=== PATIENT | female | born 1965 | race American Indian/Alaskan Native ===

== ENCOUNTER 2016-09-21 12:55 | Emergency (ER) | payer SELFPAY ==
[2016-09-21 13:17] VITALS: TEMP 98.2
--- NOTE | 2016-09-21 14:16 | C.PDOC ---
History Of Present Illness A 51 year old female patient presents to the ED c/o chest pain after waking up this morning. 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 After going to bed she notes waking up in the middle of the night and felt like "a big bubble" in her mid chest. She notes feeling nauseous, so she tried drinking water and made herself vomit with no relief. Patient notes pain as being positional were it worsens when laying down and feels better standing. Patient denies any trauma, fever, chills, SOB, cough, or any other complaints. Patient reports no other medical problems or heart diseases. Time Seen by Provider: 09/21/16 13:48 Chief Complaint (Nursing): Chest Pain History Per: Patient History/Exam Limitations: no limitations Onset/Duration Of Symptoms: Hrs Current Symptoms Are (Timing): Still Present Severity: Mild Quality: Other (Mild discomfort) Associated Symptoms: Nausea Past Medical History Reviewed: Historical Data, Nursing Documentation, Vital Signs Vital Signs: Last Vital Signs Temp 98.2 F 09/21/16 13:13 Pulse 62 09/21/16 18:43 Resp 17 09/21/16 18:43 BP 122/66 09/21/16 18:43 Pulse Ox 99 09/21/16 18:43 - Medical History PMH: Bipolar Disorder Family History: States: Diabetes, Hypertension - Social History Hx Tobacco Use: Yes (Social Smoker) Hx Alcohol Use: Yes Hx Substance Use: Yes - Immunization History Hx Tetanus Toxoid Vaccination: No Hx Influenza Vaccination: No Hx Pneumococcal Vaccination: No Review Of Systems Except As Marked, All Systems Reviewed And Found Negative. Constitutional: Negative for: Fever, Chills, Other (Trauma) Cardiovascular: Positive for: Chest Pain (Mid chest) Respiratory: Negative for: Cough, Shortness of Breath Gastrointestinal: Positive for: Nausea Physical Exam - Physical Exam Appears: Non-toxic, Other (Uncomfortable) Skin: Warm, Dry Head: Atraumatic Eye(s): bilateral: Normal Inspection Cardiovascular: Rhythm Regular, No Murmur Respiratory: Normal Breath Sounds, No Rales, No Rhonchi, No Wheezing Gastrointestinal/Abdominal: Soft, No Tenderness Neurological/Psych: Oriented x3, Normal Speech, Normal Cognition ED Course And Treatment - Laboratory Results Result Diagrams: 09/21/16 14:11 09/21/16 14:11 Lab Interpretation: Normal ECG: Interpreted By Me ECG Rhythm: Sinus Rhythm ECG Interpretation: Normal O2 Sat by Pulse Oximetry: 100 (Room air) Pulse Ox Interpretation: Normal - Radiology CXR: Interpreted by Me CXR Interpretation: Yes: No Acute Disease Progress Note: Patient given ASA enroute by EMS and received NTG SL here without relief. 4:00 Still c/o discomfort that wakes her up when she moves on the stretcher. Reglan and Protonix ordered. 6:00 Patient still c/o midsternal pressure that is worse when lying back or on her right side and is releived when sitting up or lying on her left. and Maalox ordered. Reevaluation Time: 19:04 Reassessment Condition: Improved (Better after and Maalox) Medical Decision Making Medical Decision Making: Plans: -EKG -Cardiac workup -Blood labs -CXR -Nitrostat -Urine labs -Reassess and disposition Disposition Counseled Patient/Family Regarding: Studies Performed, Diagnosis, Need For Followup, Rx Given - Disposition Referrals: [facility] [Outside] Disposition: HOME/ ROUTINE Disposition Time: 19:05 Condition: IMPROVED Additional Instructions: Keep your diet bland and take Maalox or Mylanta for pain 4 times a day if needed. You can take OTC Pepcid AC twice a day as needed. Prescriptions: Atropine/Hyoscyamine [] 1 - 2 tab PO TID PRN #30 tab PRN Reason: Pain, Moderate (4-7) Instructions: Gastroesophageal Reflux Disease (ED) - Clinical Impression Clinical Impression: GERD (gastroesophageal reflux disease) - Scribe Statement The provider has reviewed the documentation as recorded by the Scribe Gui jerez All medical record entries made by the Scribe were at my direction and personally dictated by me. I have reviewed the chart and agree that the record accurately reflects my personal performance of the history, physical exam, medical decision making, and the department course for this patient. I have also personally directed, reviewed, and agree with the discharge instructions and disposition.
[2016-09-21 14:24] LABS: BASO # 0.1 K/uL (0.0-0.2); BASO % 0.9 % (0.0-2.0); EOS # 0.2 K/uL (0.0-0.7); EOS % 2.1 % (0.0-4.0); HEMATOCRIT 35.6 % (34.0-47.0); LYMPH # 2.2 K/uL (1.0-4.3); LYMPH % 29.9 % (20.0-40.0); MEAN CELL VOLUME 74.9 fL (81.0-99.0); MEAN CORPUSCULAR HEMOGLOBIN 24.7 pg (27.0-31.0); MEAN PLATELET VOLUME 8.8 fL (7.2-11.7); MONO # 0.6 K/uL (0.0-0.8); MONO % 8.6 % (0.0-10.0); NRBC % 0.8 % (0.0-2.0); RED CELL DISTRIBUTION WIDTH 14.3 % (11.5-14.5); WHITE BLOOD COUNT 7.4 K/uL (4.8-10.8)
--- NOTE | 2016-09-21 14:32 | RAD ---
PROCEDURE: CHEST RADIOGRAPH, 1 VIEW HISTORY: chest pain COMPARISON: None available. FINDINGS: LUNGS: Clear. PLEURA: No pneumothorax or pleural fluid seen. CARDIOVASCULAR: Normal. OSSEOUS STRUCTURES: No significant abnormalities. VISUALIZED UPPER ABDOMEN: Normal. OTHER FINDINGS: None. IMPRESSION: No active disease.
[2016-09-21 14:35] LABS: CHLORIDE 103 mmol/L (98-107)
[2016-09-21 14:36] LABS: POTASSIUM 4.6 mmol/L (3.6-5.2); SODIUM 139 mmol/L (132-148)
[2016-09-21 14:39] LABS: ALB/GLOB RATIO 1.6 (1.0-2.1); ALKALINE PHOSPHATASE 56 U/L (38-126); ALT/SGPT 26 U/L (9-52); AST/SGOT 32 U/L (14-36); BILIRUBIN,TOTAL 0.5 mg/dL (0.2-1.3); BLOOD UREA NITROGEN 17 mg/dL (7-17); CALCIUM 8.9 mg/dl (8.6-10.4); CARBON DIOXIDE 22 mmol/L (22-30); GFR AFRICAN-AMERICAN > 60; GLUCOSE,RANDOM 85 mg/dL (65-105)
[2016-09-21] MEDS ORDERED: Belladonna-Phenobarbital PO STA (18:09)
[2016-09-21] MEDS ORDERED: Aluminum Hydroxide/Magnesium Hydroxide Susp (30 mL) PO STA (18:09)
[2016-09-21] MEDS ORDERED: Aluminum Hydroxide/Magnesium Hydroxide Susp (30 mL) ONE (18:16)
[2016-09-21] MEDS ORDERED: Belladonna-Phenobarbital ONE (18:16)
[2016-09-21 18:43] VITALS: BP 122/66; PULSE 62
[2016-09-21 19:07] VITALS: O2SAT 100
[2016-09-21 19:28] VITALS: RESP 18
--- NOTE | 2016-09-22 19:21 | CARD ---
APPROVED REPORT EKG Measurement Heart [id number] OR [id number] [id number] <Conclusion> Normal sinus rhythm Normal ECG
== END 2016-09-21 19:23 | disposition home or self-care (01) ==
LOC: C.ER 12:55
DX: K21.9 Gastro-esophageal reflux disease without esophagitis (principal)
CPT/HCPCS: 71010; 80053; 83690; 84484; 84703; 85025; 85378; 93005; 96374; 96375; 99285; C9113; J2765